=== PATIENT | male | born 1970 | race Caucasian/White ===

== ENCOUNTER 2020-08-28 18:45 | Emergency (ER) | payer SELFPAY ==
[2020-08-28 19:16] VITALS: PULSE 81; RESP 18; TEMP 37.2; O2SAT 96
[2020-08-28 19:19] VITALS: BP 147/70
--- NOTE | 2020-08-28 23:42 | ED.EXTPRO ---
HPI - Extremity Problem General Chief complaint: Extremity Problem,Nontraumatic Stated complaint: Infection in rt knee. Sent by [facility] Time Seen by Provider: 08/28/20 23:35 Source: patient Mode of arrival: Ambulatory History of Present Illness HPI Narrative: Patient is a 50-year-old male who is here for evaluation of redness and infection over his right knee. He states that he went to the walk-in clinic at an outside facility and was sent to the emergency department because they thought that is potentially a worse infection. He denies any specific trauma. He states that a couple days ago he started noticing some discomfort and then soon afterwards he thought that he had an ingrown hair on the front of his knee which she ?plucked out ?since that time he has had increasing redness. He is not currently on any antibiotics. He does not have any pain in his knee when he bends it. Related Data Previous Rx's Medication Instructions Recorded amoxicillin 875 mg-potassium 875 mg PO BID #14 tab 02/04/16 clavulanate 125 mg tablet (Augmentin) doxycycline hyclate 100 mg tablet 100 mg PO BID 7 Days #14 tab 08/28/20 Allergies Allergy/AdvReac Type Severity Reaction Status Date / Time carageeenan AdvReac Unknown Uncoded 06/03/17 12:14 Review of Systems Constitutional Constitutional: Denies fever(s) and Denies headache(s) ENT Ears, Nose, Mouth, and Throat: Denies headache(s) Cardiovascular Cardiovascular: Reports system reviewed and no additional complaints, except as documented Respiratory Respiratory: Reports system reviewed and no additional complaints, except as documented Gastrointestinal Gastrointestinal: Reports system reviewed and no additional complaints, except as documented Musculoskeletal Comments: Pain with bending of the right knee Integumentary/Breasts Comments: Redness and infection over the right knee Neurologic Neurologic: Denies headache(s) Psychiatric Psychiatric: Reports system reviewed and no additional complaints, except as documented Hematologic/Lymphatic On Anticoagulants: No Allergic/Immunologic Allergic/Immunologic: Reports system reviewed and no additional complaints, except as documented Patient History Medical History Sinusitis Viral upper respiratory infection Social History lives independently: Yes Exam Initial Vital Signs Initial Vital Signs: Vital Signs Temperature 98.9 F 08/28/20 19:16 Pulse Rate 81 08/28/20 19:16 Respiratory Rate 18 08/28/20 19:16 Pulse Oximetry 96 08/28/20 19:16 HENPR Head: normal to inspection and normocephalic Resp Effort & Inspection: normal respiratory effort Cardio Rate: regular rate Skin Other: Patient has an area of redness over the anterior medial aspect of the right knee. There is a 2 cm x 2 cm area of ulceration with some drainage over the anterior knee as well. Neuro General: patient alert, patient awake and patient oriented x3 Gait: normal gait Extrem Other: Patient does have redness over the front of the right knee. He can bend his knee and the discomfort comes from the skin overlying the area not discomfort inside the joint. The rest of his right lower extremity is unremarkable. Course Orders Ordered: Discontinued Medications Doxycycline Hyclate (Doxycycline Hyclate 100 Mg Tablet) 100 mg PO NOW ONE Stop: 08/28/20 23:43 Last Admin: 08/29/20 00:03 Dose: 100 mg Documented by: BENIGNO Vital Signs Vital signs: Vital Signs - 8 hr 08/28/20 19:16 08/28/20 19:19 Temperature 98.9 F Pulse Rate 81 Respiratory Rate 18 Blood Pressure 147/70 H Pulse Oximetry 96 MDM - Extremity (Nontraumatic) MDM Narrative Medical decision making narrative: Patient is well-appearing. Is afebrile. Does have what appears to be cellulitis over the anterior portion of his right knee. Low suspicion for septic joint given his presentation today. The area of redness was outlined with a marker we will start on antibiotics. He is given his 1st dose here in the emergency department a prescription was sent to the pharmacy of his choice. He was given strict return precautions. He expressed understanding and agreement. I feel that we can hold on any radiologic studies for now given his clinical presentation. Discharge Plan Departure Patient Disposition: Home Clinical Impression: Cellulitis Instructions: DI for Cellulitis -- Adult Activity Restrictions/Additional Instructions: You can shower like normal. Start taking the antibiotics as directed. If the redness starts to extend outside of the line that was drawn today you do need to return to the emergency department for further evaluation. Prescriptions: New doxycycline hyclate 100 mg tablet 100 mg PO BID 7 Days Qty: 14 RF: 0 No Action amoxicillin-pot clavulanate [Augmentin] 875 MG/125 MG tablet 875 mg PO BID Qty: 14 RF: 0 Stand Alone Forms: Work Release Note
[2020-08-29] MEDS: DOXYCYCLINE HYCLATE 100 MG TABLET PO (00:03)
== END 2020-08-29 00:01 | disposition home or self-care (01) ==
PROVIDERS: Emergency Provider Emergency Medicine
DX: L03.115 Cellulitis of right lower limb (principal)
CPT/HCPCS: 99283